=== PATIENT | male | born 1940 | race Caucasian/White ===

== ENCOUNTER 2021-12-31 10:35 | Day surgery (SDC) | payer OTHER ==
[~2021-12-31 10:35] MED LIST: DECITABINE (DACOGEN) 10 MG/1 ML SQ SQ ONE
[2021-12-31 11:34] LABS: HEMATOCRIT 24.4 % (35.4-49); MCH 29.4 pg (25.7-33.7); MCHC 32.7 g/dl (32.0-35.9); MEAN CELL VOLUME 89.9 fl (80-96); MEAN PLT VOLUME 7.9 fl (7.5-11.1); PLATELET COUNT 332 10^3/uL (134-434); RBC 2.71 M/mm3 (4.00-5.60)
[2021-12-31 11:47] LABS: WHITE BLOOD COUNT 143.9 K/mm3 (4.0-10.0)
[2021-12-31 12:05] LABS: CALCIUM 8.5 mg/dL (8.5-10.1)
[2021-12-31 12:06] LABS: ALBUMIN 3.5 g/dl (3.4-5.0); BLOOD UREA NITROGEN 32.8 mg/dL (7-18)
[2021-12-31 12:08] LABS: URIC ACID 5.3 mg/dL (2.6-7.2)
[2021-12-31 12:09] LABS: BILIRUBIN,DIRECT 0.3 mg/dL (0.0-0.2); CREATININE 2.4 mg/dL (0.55-1.3)
[2021-12-31 12:10] LABS: BILIRUBIN,TOTAL 0.8 mg/dL (0.2-1)
[2021-12-31 12:38] LABS: ANISOCYTOSIS 1+; MACROCYTOSIS 1+
[2021-12-31] MEDS: POTASSIUM CHLORIDE TABS 20 MEQ TABLET.ER (FP) PO SCH ×2 (13:25→14:34)
[2021-12-31 18:47] VITALS: BP 146/67; PULSE 70; TEMP 97.9
== END 2021-12-31 14:40 | disposition home or self-care (01) ==
LOC: JCHEMO 10:35 → J7W 10:39 → JCHEMO 14:40
PROVIDERS: ATTEND Internal Medicine Hematology & Oncology
DX: Z51.11 Encounter for antineoplastic chemotherapy (principal); C92.10 Chronic myeloid leukemia, BCR/ABL-positive, not having achieved remission
CPT/HCPCS: 36415; 80048; 80076; 83615; 84550; 85025; 96401; J0894

== ENCOUNTER 2022-01-06 21:47 | Emergency (ER) | payer OTHER ==
[2022-01-06] MEDS ORDERED: DEXTROSE 50%-WATER 25 GM/50 ML DISP.SYRIN ONE (21:57)
[2022-01-06] MEDS ORDERED: MIDAZOLAM IN 0.9 % SOD.CHLORID 1 MG/1 ML PLAST..BAG ONE (22:09)
[2022-01-06] MEDS ORDERED: EPINEPHrine 1:10,000 (P-F SYR) 1 MG/10 ML DISP.SYRIN ONE (22:13)
[2022-01-06] MEDS ORDERED: AMIODARONE HCL 150 MG/3 ML VIAL ONE (22:14)
[2022-01-06] MEDS ORDERED: MIDAZOLAM IN 0.9 % SOD.CHLORID 100 MG/100 ML PLAST..BAG IVPB SCH (22:30)
[2022-01-06] MEDS ORDERED: FENTANYL NS IVPB 500 MCG/100 ML BAG IVPB SCH (22:30)
[2022-01-06] MEDS ORDERED: NOREPINEPHRINE BITARTRATE 8,000 MCG in DEXTROSE 5%-WATER - 492 ML IV SCH (22:30)
[2022-01-06 22:31] VITALS: BP 0/0; BMI 24.0
[2022-01-06 22:39] VITALS: PULSE 0
== END 2022-01-07 01:43 | disposition expired ==
LOC: JER 21:47
DX: I46.9 Cardiac arrest, cause unspecified (principal); C95.00 Acute leukemia of unspecified cell type not having achieved remission
CPT/HCPCS: 99284-25